=== PATIENT | male | born 1985 | race Two or more races ===

== ENCOUNTER 2024-08-06 18:19 | Emergency (ER) | payer OTHER ==
[~2024-08-06] VITALS: Ht 172.7 cm; Wt 105.9 kg
[2024-08-06 18:27] VITALS: BP 136/97; PULSE 82; RESP 18; TEMP 98.4; O2SAT 97
--- NOTE | 2024-08-06 18:34 | ED.PDOC ---
History of Present Illness(SKN HPI Comments Pt presents to ED with c/c of right ring finger burn while installing a subwoofer amplifier. States when fusing the wires, his wedding ring was touching the chasse and cause metal ring to heat up and burn patient finger. Noted to have blistering around ring finger with dry skin surrounding area. CSM intact. Chief Complaint: [place] Time Seen by MD: 18:22 History of Present Illness: Nurses Notes, Medications, Allergies Allergies: Coded Allergies: NO KNOWN ALLERGIES (Unverified , 08/06/24) Information Source: Patient Past Medical History PAST MEDICAL HISTORY: Denies Surgical History: Denies all surgeries Family History Family History: Reviewed,noncontributory to illness Social History Smoker: Non-Smoker Alcohol: Denies ETOH Use Drugs: Denies Drug Use Constitutional: denies: chills, diaphoresis, fatigue, fever, malaise, sweats, weakness, others EENTM: denies: blurred vision, double vision, ear bleeding, ear discharge, ear drainage, ear pain, ear ringing, eye pain, eye redness, hearing loss, mouth pain, mouth swelling, nasal discharge, nose bleeding, nose congestion, nose pain, photophobia, tearing, throat pain, throat swelling, voice changes, others Respiratory: denies: cough, hemoptysis, orthopnea, SOB at rest, shortness of breath, SOB with excertion, stridor, wheezing, others Cardiovascular: denies: chest pain, dizzy spells, diaphoresis, Dyspnea on exertion, edema, irregular heart beat, left arm pain, lightheadedness, palpitations, PND, syncope, others Gastrointestinal: denies: abdomen distended, abdominal pain, blood streaked bowels, constipated, diarrhea, dysphagia, difficulty swallowing, hematemesis, melena, nausea, poor appetite, poor fluid intake, rectal bleeding, rectal pain, vomiting, others Genitourinary: denies: burning, dysuria, flank pain, frequency, hematuria, incontinence, penile discharge, penile sore, pain, testicle pain, testicle swelling, urgency, others Neurological: denies: dizziness, fainting, headache, left sided numbness, left sided weakness, numbness, paresthesia, pre-existing deficit, right sided numbness, right sided weakness, seizure, speech problems, tingling, tremors, weakness, others Musculoskeletal: denies: back pain, gout, joint pain, joint swelling, muscle pain, muscle stiffness, neck pain, others Integumetry: reports: wounds (burn right hand ring finger ); denies: bruises, change in color, change in hair/nails, dryness, laceration, lesions, lumps, rash, others Allergic/Immunocompromised: denies: Difficulty Healing, Frequent Infections, Hives, Itching, others Hematologic/Lymphatic: denies: anemia, blood clots, easy bleeding, easy bruising, swollen glands, others Endocrine: denies: excessive hunger, excessive sweating, excessive thirst, excessive urination, flushing, intolerance to cold, intolerance to heat, unexplained weight gain, unexplained weight loss, others Psychiatric: denies: anxiety, bipolar disorder, depression, hopeless, panic disorder, schizophrenia, sleepless, suicidal, others Physical Exam General Appearance: No Apparent Distress, Normal HEENT: Pharynx Normal Neck: Full Range of Motion, Non-Tender Respiratory: Lungs Clear, No Respiratory Distress, Normal Breath Sounds Cardiovascular: No Murmur, Normal Peripheral Pulses, Regular Rate/Rhythm Breast Exam: Deferred Gastrointestinal: Non Tender, Soft Genitalia: Deferred Pelvic: Deferred Rectal: Deferred Extremities: Normal capillary refill, Normal inspection, Normal range of motion, Non-tender, No pedal edema Musculoskeletal : Apperance: Normal Neurologic: Alert, No Motor Deficits, Normal Affect, Normal Mood, No Sensory Deficits Cerebellar Function: Normal Reflexes: Normal Skin: Dry, Normal Color, Warm, Wounds (Right hand 4th digit proximal aspect circular second-degree burn no noted blistering no noted drainage sensory motion intact) Lymphatic: No Adenopathy Was a procedure done? Was a procedure done?: No Differential Diagnosis (INTG) Differential Diagnosis: Abrasion, Cellulitis, Hematoma Differential Diagnosis: Abscess X-Ray, Labs, Meds, VS Vital Signs Date Time Temp Pulse Resp B/P (MAP) Pulse Ox O2 Delivery O2 Flow Rate FiO2 08/06/24 18:27 98.4 82 18 136/97 (110) 97 98.4 Current Medications Medications (Trade) Dose Ordered Sig/Arlette Route Start Time Stop Time Status Last Admin Bacitracin 1 applic ONCE ONCE TOP 08/06/24 18:45 08/06/24 18:46 DC 08/06/24 18:57 X-Ray, Labs, Meds, VS Comment Wound cleansed dressed and applied bacitracin we will script trial of bacitracin take medication as prescribed side effects discussed. Keep dressing clean dry and intact. Follow up with your PCP within 2 days for wound re-evaluation fol low up with employee health as directed. ER return precautions given patient indicates understanding agrees with discharge plan of care. Time of 1ST Reevaluation: 18:12 Reevaluation 1ST: Unchanged Time of 2ND Reevaluation: 18:48 Reevaluation 2ND: Improved Patient Education/Counseling: Diagnosis, Treatment, Prognosis, Need For Follow Up Family Education/Counseling: No Family Present SEPSIS Sepsis Screen Vital Signs Date Time Temp Pulse Resp B/P (MAP) Pulse Ox O2 Delivery O2 Flow Rate FiO2 08/06/24 18:27 98.4 82 18 136/97 (110) 97 98.4 Medications Medications Dose Ordered Sig/Arlette Route Start Time Stop Time Status Last Admin Dose Admin Bacitracin 1 applic ONCE ONCE TOP 08/06/24 18:45 08/06/24 18:46 DC 08/06/24 18:57 Departure 1 Departure Time of Disposition: 18:48 Impression: Primary Impression: Second degree burn of finger of right hand Qualified Codes: T23.221A - Burn of second degree of single right finger (nail) except thumb, initial encounter Disposition: 01 HOME / SELF CARE / HOMELESS Condition: Stable Discharged With: Self Critical Care Note Critical Care Time?: No Stability Stability form required: EDGAR Rhodes Aug 06, 2024 18:34
[2024-08-06] MEDS: BACITRACIN TOP OINT 1 UD PKG TOP ONE (18:57)
== END 2024-08-06 20:32 | disposition home or self-care (01) ==
LOC: ER 18:19
DX: T23.221A Burn of second degree of single right finger (nail) except thumb, initial encounter (principal); X08.8XXA Exposure to other specified smoke, fire and flames, initial encounter; Y93.89 Activity, other specified; Y92.89 Other specified places as the place of occurrence of the external cause; Y99.8 Other external cause status
CPT/HCPCS: 16020